=== PATIENT | female | born 1950 | race Caucasian/White ===

== ENCOUNTER 2016-04-14 15:50 | Emergency (ER) | payer BC ==
[~2016-04-14] VITALS: Ht 165.1 cm; Wt 95.5 kg
[~2016-04-14 15:50] MED LIST: ADVIL200 MG PO; FLONASEALLERGY NS; NEXIUM 20MG20 MG PO; NORCO 325 MG-7.1 TAB PO; OCUVITE1 TA1 PO; PRILOSEC 20MG20 MG PO; SINGULAIR 110 MG/TAB PO; SYNTHROID0.125 MG/T PO; TYLENOL 325MG325 MG PO; VITAMIN D32000 I1 PO; ZANTAC 150MG T150 MG PO; ZYRTEC 10MG10 MG PO
[2016-04-14 15:53] VITALS: TEMP 98.2
[2016-04-14 20:18] VITALS: BP 140/84; PULSE 68
== END 2016-04-14 20:29 | disposition home or self-care (01) ==
LOC: COL.ER 15:50
DX: L02.216 Cutaneous abscess of umbilicus (principal); I10 Essential (primary) hypertension; I11.9 Hypertensive heart disease without heart failure

== ENCOUNTER → 2016-04-19 | Outpatient (CLI) | payer BC | LOC: COL.RAD 07:04 | DX: Z13.89 Encounter for screening for other disorder (principal) | CPT/HCPCS: Q9967 ==

== ENCOUNTER → 2016-05-05 | Outpatient (CLI) | payer BC | LOC: MC.RAD 12:58 | DX: Z85.3 Personal history of malignant neoplasm of breast (principal) ==

== ENCOUNTER → 2016-10-16 | Outpatient (CLI) | payer BC | LOC: MHCPAIN 10:46 | DX: G89.29 Other chronic pain (principal); M47.817 Spondylosis without myelopathy or radiculopathy, lumbosacral region; M54.16 Radiculopathy, lumbar region; M53.3 Sacrococcygeal disorders, not elsewhere classified; Z87.891 Personal history of nicotine dependence | CPT/HCPCS: G0463 ==

== ENCOUNTER → 2016-11-03 | Outpatient (CLI) | payer BC | LOC: MC.RAD 08:18 | DX: C50.211 Malignant neoplasm of upper-inner quadrant of right female breast (principal); Z98.890 Other specified postprocedural states ==

== ENCOUNTER → 2016-11-17 | Outpatient (CLI) | payer BC | LOC: MHCPAIN 10:06 | DX: G89.29 Other chronic pain (principal); M47.27 Other spondylosis with radiculopathy, lumbosacral region; Z87.891 Personal history of nicotine dependence | CPT/HCPCS: G0463 ==

== ENCOUNTER → 2016-11-23 | Outpatient (CLI) | payer BC | LOC: MHCPAIN 08:59 | DX: M47.27 Other spondylosis with radiculopathy, lumbosacral region (principal); M48.06 Spinal stenosis, lumbar region | CPT/HCPCS: J1100; Q9967 ==

== ENCOUNTER → 2016-12-06 | Outpatient (CLI) | payer BC | LOC: MHCPAIN 09:08 | DX: G89.29 Other chronic pain (principal); M47.27 Other spondylosis with radiculopathy, lumbosacral region; Z87.891 Personal history of nicotine dependence; M53.3 Sacrococcygeal disorders, not elsewhere classified | CPT/HCPCS: G0463 ==

== ENCOUNTER → 2016-12-28 | Outpatient (CLI) | payer BC | LOC: MHCPAIN 10:17 | DX: M47.27 Other spondylosis with radiculopathy, lumbosacral region (principal); M48.07 Spinal stenosis, lumbosacral region | CPT/HCPCS: J1100; Q9967 ==

== ENCOUNTER → 2017-02-26 | Outpatient (CLI) | payer BC | LOC: MHCPAIN 12:33 | DX: G89.29 Other chronic pain (principal); M47.27 Other spondylosis with radiculopathy, lumbosacral region; Z87.891 Personal history of nicotine dependence | CPT/HCPCS: G0463 ==

== ENCOUNTER → 2017-05-07 | Outpatient (CLI) | payer BC | LOC: MC.RAD 13:59 | DX: Z12.31 Encounter for screening mammogram for malignant neoplasm of breast (principal); Z85.3 Personal history of malignant neoplasm of breast; Z92.3 Personal history of irradiation; Z98.890 Other specified postprocedural states ==

== ENCOUNTER → 2017-05-21 | Outpatient (CLI) | payer BC | LOC: COL.LAB 15:40 | DX: Z01.89 Encounter for other specified special examinations (principal) ==

== ENCOUNTER → 2017-08-27 | Outpatient (CLI) | payer BC | LOC: MHCPAIN 14:11 | DX: G89.29 Other chronic pain (principal); M47.817 Spondylosis without myelopathy or radiculopathy, lumbosacral region; M54.16 Radiculopathy, lumbar region | CPT/HCPCS: G0463 ==

== ENCOUNTER → 2017-10-11 | Outpatient (CLI) | payer BC | LOC: MHCPAIN 08:31 | DX: M47.817 Spondylosis without myelopathy or radiculopathy, lumbosacral region (principal) | CPT/HCPCS: G0463; J1040; Q9967 ==

== ENCOUNTER → 2017-10-23 | Outpatient (CLI) | payer BC | LOC: MHCPAIN 13:50 | DX: G89.29 Other chronic pain (principal); M47.817 Spondylosis without myelopathy or radiculopathy, lumbosacral region; M54.16 Radiculopathy, lumbar region; M53.3 Sacrococcygeal disorders, not elsewhere classified | CPT/HCPCS: G0463 ==

== ENCOUNTER → 2018-05-31 | Outpatient (CLI) | payer MEDICARE | LOC: MC.RAD 10:45 | DX: Z12.31 Encounter for screening mammogram for malignant neoplasm of breast (principal); C50.211 Malignant neoplasm of upper-inner quadrant of right female breast ==

== ENCOUNTER → 2018-12-11 | Outpatient (CLI) | payer MEDICARE | LOC: MHCPAIN 09:07 | DX: G89.29 Other chronic pain (principal); M47.817 Spondylosis without myelopathy or radiculopathy, lumbosacral region; M54.16 Radiculopathy, lumbar region; M53.3 Sacrococcygeal disorders, not elsewhere classified | CPT/HCPCS: G0463 ==

== ENCOUNTER → 2018-12-19 | Outpatient (CLI) | payer MEDICARE | LOC: MHCPAIN 13:47 | DX: M47.817 Spondylosis without myelopathy or radiculopathy, lumbosacral region (principal); M54.16 Radiculopathy, lumbar region | CPT/HCPCS: J1100; Q9967 ==

== ENCOUNTER → 2019-01-01 | Outpatient (CLI) | payer MEDICARE | LOC: MHCPAIN 13:07 | DX: G89.29 Other chronic pain (principal); M47.817 Spondylosis without myelopathy or radiculopathy, lumbosacral region; M54.16 Radiculopathy, lumbar region; M53.3 Sacrococcygeal disorders, not elsewhere classified | CPT/HCPCS: G0463 ==

== ENCOUNTER → 2019-01-06 | Outpatient (CLI) | payer MEDICARE | LOC: MHCPAIN 11:45 | DX: M47.817 Spondylosis without myelopathy or radiculopathy, lumbosacral region (principal); M54.16 Radiculopathy, lumbar region | CPT/HCPCS: J1100; Q9967 ==

== ENCOUNTER → 2019-01-13 | Outpatient (CLI) | payer MEDICARE | LOC: MHCPAIN 09:07 | DX: G89.29 Other chronic pain (principal); M54.16 Radiculopathy, lumbar region; M53.3 Sacrococcygeal disorders, not elsewhere classified | CPT/HCPCS: G0463 ==